=== PATIENT | male | born 1965 | race Caucasian/White ===

== ENCOUNTER 2016-07-19 12:14 | Emergency (ER) | payer OTHER ==
[~2016-07-19] VITALS: Ht 175.3 cm; Wt 81.6 kg
[2016-07-19 12:29] VITALS: BP 130/99
--- NOTE | 2016-07-19 15:20 | NUR ---
PT CAME TO ER DUE TO LEFT WRIST PAIN LAST FRIDAY, XRAY DONE IN A CLINIC BUT WASN'T INFORMED IF IT IS FRACTURED;CAME HERE TO ER FOR FOLLOW UP;LEFT HAND IS SWOLLEN;DENIES Pain/NUMBNESS/TINGLING SENSATION ON LEFT HAND.DENIES CP/SOB/F/N/V.AAOX4;NO ACUTE DISTRESS NOTED;STEADY GAIT;NEEDS ATTENDED;SAFETY MEASURES DONE;POSITIONED FOR COMFORT.
--- NOTE | 2016-07-19 16:22 | NUR ---
DR SAWYER AT BEDSIDE.
--- NOTE | 2016-07-19 16:32 | NUR ---
Patient discharged with v/s stable. Written and verbal after care instructions given and explained. Patient verbalized understanding. Ambulatory with steady gait. All questions addressed prior to discharge. Advised to follow up with PMD.
[2016-07-19 16:33] VITALS: BP 134/84
== END 2016-07-19 16:32 | disposition home or self-care (01) ==
LOC: MED 12:14
DX: S62.102D Fracture of unspecified carpal bone, left wrist, subsequent encounter for fracture with routine healing (principal); X58.XXXD Exposure to other specified factors, subsequent encounter
CPT/HCPCS: 99283